=== PATIENT | female | born 1950 | race African-American/Black ===

== ENCOUNTER 2018-03-14 16:17 | Observation (INO) | payer MEDICARE ==
[2018-03-14 16:55] LABS: #Eosinphils 0.1 thou/uL (0.0-0.7); #Lymphocytes 1.8 thou/uL (1.20-3.40); #Monocytes 0.8 thou/uL (0.11-0.59); #Neutrophils 8.7 thou/uL (1.40-6.50); %Basophils 0.1 % (0.0-1.0); %Lymphocytes 16.1 % (21.0-51.0); %Monocytes 6.8 % (0.0-10.0); Hemoglobin 6.4 g/dL (12.0-16.0); Mean Corpuscular HGB CONC 31.4 g/dL (32.0-36.0); Mean Corpuscular Hemoglobin 23.9 pg (27.0-31.0); Mean Platelet Volume 6.5 fL (7.4-10.4); Platelet Count 368 thou/uL (130-400); RBC Distribution Width 15.8 % (11.5-14.5); Red Blood Cell (RBC) Count 2.69 mill/uL (4.20-5.40); White Blood Cell (WBC) Count 11.4 thou/uL (4.8-10.8)
[2018-03-14 18:26] LABS: PTT 29.9 SEC (22.9-36.1); Prothrombin Time 13.6 SEC (12.0-14.7)
[2018-03-14 18:35] LABS: ALT (SGPT) 9 U/L (8-55); AST (SGOT) 14 U/L (5-34); Albumin 3.8 g/dL (3.4-4.8); Alkaline Phosphatase 84 U/L (40-150); Anion Gap 11 mmol/L (10-20); BUN (Urea Nitrogen) 19 mg/dL (9.8-20.1); Bilirubin, Total 0.3 mg/dL (0.2-1.2); Calc. Creatinine Clearance 0 mL/min (70-130); Calcium 9.3 mg/dL (7.8-10.44); Carbon Dioxide 28 mmol/L (23-31); Chloride 104 mmol/L (98-107); Estimated GFR-MDRD 34; Globulin 3.4 g/dL (2.4-3.5); Glucose 118 mg/dL (80-115); Potassium 3.3 mmol/L (3.5-5.1); Protein, Total 7.2 g/dL (6.0-8.3); Sodium 140 mmol/L (136-145)
[2018-03-14] MEDS ORDERED: Acetaminophen 325 MG TAB PO PRN (20:55)
[2018-03-14] MEDS ORDERED: Ondansetron HCl/PF 4 MG/2 ML Vial IVP PRN (20:55)
[2018-03-14] MEDS ORDERED: Ondansetron ODT 4 MG TAB SL PRN (20:55)
[2018-03-14] MEDS ORDERED: Senokot 8.6 MG TAB PO PRN (21:43)
[2018-03-14] MEDS ORDERED: Bisacodyl 5 MG TAB PO PRN (21:43)
[2018-03-15 02:15] VITALS: BMI 41.8
[2018-03-15 05:18] LABS: #Eosinphils 0.1 thou/uL (0.0-0.7); #Lymphocytes 1.8 thou/uL (1.20-3.40); #Monocytes 0.6 thou/uL (0.11-0.59); %Basophils 0.2 % (0.0-1.0); %Eosinophils 1.3 % (0.0-10.0); %Lymphocytes 18.6 % (21.0-51.0); %Monocytes 6.5 % (0.0-10.0); %Neutrophils 73.4 % (42.0-75.0); Hemoglobin 8.4 g/dL (12.0-16.0); Mean Corpuscular HGB CONC 32.3 g/dL (32.0-36.0); Mean Corpuscular Hemoglobin 25.9 pg (27.0-31.0); Mean Corpuscular Volume 80.1 fL (78.0-98.0); Mean Platelet Volume 6.3 fL (7.4-10.4); Platelet Count 296 thou/uL (130-400); RBC Distribution Width 16.5 % (11.5-14.5); Red Blood Cell (RBC) Count 3.22 mill/uL (4.20-5.40); White Blood Cell (WBC) Count 9.5 thou/uL (4.8-10.8)
[2018-03-15 08:18] VITALS: BP 140/64; TEMP 98.5
[2018-03-15] MEDS ORDERED: Nystatin Powder 15 GM BOT TOP SCH (09:00)
[2018-03-15] MEDS ORDERED: Prevnar 13-Val Conj/PF 0.5 ML SYRINGE IM ONE (09:00)
[2018-03-15] MEDS ORDERED: Enoxaparin Sodium 30 MG/0.3 ML SYRINGE SC SCH (09:00)
[2018-03-15] MEDS ORDERED: Docusate 100 MG CAP PO SCH (09:00)
--- NOTE | 2018-03-18 10:40 | SS ---
CHIEF COMPLAINT: Anemia. HISTORY OF PRESENT ILLNESS: This is a 67-year-old female with a known history of vaginal bleeding an d endometrial cancer, who was sent to the emergency department for active bleeding and anemia with he moglobin of 6.4. It appears that the patient is scheduled for surgical intervention, specifically for her vaginal blee ding. The patient is not exactly able to recall the name of the procedure, but it sounds like she ma y be planned for a hysterectomy. She does have this chronic bleeding and actually at the time of my evaluation, it has "slowed down" compared to the last prior day. Patient was found with a low hemogl obin without any overt symptoms besides easy fatigability, which has also been somewhat chronic for t he patient over the last few weeks. Patient was requested by her attending physician to obtain 2 uni ts of PRBC blood transfusion. At the time of my evaluation this has already been started in the [facility] department. The patient herself has no acute complaints at the time of my evaluation. REVIEW OF SYSTEMS: As per HPI. Constitutional: Generalized fatigue which is noted above. Otherwis e, no significant weight gain or loss. No fevers or chills. HEENT: No lightheadedness, dizziness, syncopal or presyncopal episodes. Denies any blurry vision. CARDIOVASCULAR: Easy fatigability, but otherwise without any chest pain, chest pressure, palpitations, left sided arm numbness or tingling. RESPIRATORY: Easy fatigability without shortness of breath with exertion. No congestion. No coug h. No recent upper respiratory infection. GASTROINTESTINAL: Denies any issues with nausea, vomitin g, abdominal pain, constipation or diarrhea. GENITOURINARY: Vaginal bleeding as noted above. No dy suria, changes in urinary quality or quantity, odor or frequency. MUSCULOSKELETAL: Generalized fati gability without focal myalgia or arthralgia. Remainder of review of systems otherwise negative. PAST MEDICAL HISTORY: Significant for hypertension and heavy menstrual bleeding as noted above. Hyp othyroidism. HOME MEDICATIONS: 1. Lisinopril/hydrochlorothiazide 20/25 mg 1 tab p.o. daily. 2. Levothyroxine 100 mcg p.o. daily. ALLERGIES: No known drug allergies. FAMILY HISTORY: The patient denies any family history of bleeding in her family that she is aware of what issues with anemia. SOCIAL HISTORY: Patient denies any alcohol, tobacco or illicit drug use. She endorses being [employer] [place] at this point in time. PHYSICAL EXAMINATION: GENERAL: The patient is awake, alert, in no acute distress, lying in the hospital bed. HEENT: Normocephalic, atraumatic. Has moist mucous membranes, equal ocular motions are intact, pale mucosal membranes. CARDIOVASCULAR: S1, S2. No murmurs, rubs or gallops. Pulses 2+ bilateral upper extremities, no pit ting pedal edema. RESPIRATORY: Reasonable air movement. No wheezes, rales or rhonchi. No conversational dyspnea. Gr ossly clear to auscultation bilaterally. ABDOMEN: Positive bowel sounds, soft, nontender to palpation. MUSCULOSKELETAL: Able to self reposition bed without difficulty or assistance. LABORATORY DATA: WBC 11.4, hemoglobin 6.4, hematocrit 20.4, platelets 368. PT 13.6, INR 1.0, PTT 29 .9. Sodium 140, potassium 3.3, chloride 104, bicarb 28, BUN 19, creatinine 1.52, glucose 118, calciu m 9.3, total bilirubin 0.3, AST 14, ALT 9, alkaline phosphatase 84, total protein 7.2, albumin 3.8. ASSESSMENT AND PLAN: 1. A 67-year-old female with heavy menstrual periods presenting with anemia and hemoglobin of 6.4. 2. Anemia, likely secondary to vaginal loss. Patient already has a [facility] appointment this week for fu rther evaluation and management. The patient is symptomatic with her anemia as described by her gene ral fatigability. Patient is currently transfusing 1 of 2 units PRBCs, which has been already ordere d in the emergency department. We will recheck CBC post-transfusion. Closely monitor for any transf usion reaction or other generalized adverse reaction. 3. Hypertension. Continue the patient on her home regimen. 4. Hypothyroidism. Continue the patient on her home levothyroxine. 5. Diet: Regular. 6. Activity: As tolerated. 7. Deep venous thrombosis prophylaxis: Sequential. DISCHARGE DIAGNOSES: Are the same of those on admission. 1. Anemia secondary to vaginal bleeding. 2. Symptomatic anemia. SUMMARY OF HOSPITALIZATION: The patient tolerated her transfusion without adverse sequelae. Follow up labs demonstrate appropriate increase of her hemoglobin to 8.4. The patient is being discharged i n hemodynamically stable condition, tolerating her baseline diet with activity. FOLLOWUP: The patient already has a scheduled followup in [place] with her gynecological specialist. The patient will also follow up on a routine basis with her primary care team. Thank you for asking me to care for the patient.
== END 2018-03-15 12:08 | disposition home or self-care (01) ==
LOC: ERS 16:17 → 2SW 19:10
PROVIDERS: ADMIT Internal Medicine; ATTEND Internal Medicine
DX: N93.8 Other specified abnormal uterine and vaginal bleeding (principal); D50.0 Iron deficiency anemia secondary to blood loss (chronic); I10 Essential (primary) hypertension; E03.9 Hypothyroidism, unspecified; Z79.899 Other long term (current) drug therapy
CPT/HCPCS: 36430; 80053; 85025 ×2; 85610; 85730; 86850; 86900; 86901; 86920; 90670; 99285; G0009; G0378 ×2; P9016; 36415; 90471; J1650

== ENCOUNTER 2018-04-15 08:55 | Outpatient (CLI) | payer MEDICARE | END 2018-04-15 08:56 | disposition home or self-care (01) | LOC: BICULT 08:55 | PROVIDERS: ATTEND Internal Medicine | DX: B19.10 Unspecified viral hepatitis B without hepatic coma (principal); D64.9 Anemia, unspecified; K80.20 Calculus of gallbladder without cholecystitis without obstruction; K82.8 Other specified diseases of gallbladder | CPT/HCPCS: 76700 ==